=== PATIENT | female | born 1950 | race African-American/Black ===

== ENCOUNTER 2018-06-03 08:48 | Inpatient (IN) | payer MEDICARE, MEDICAID ==
[~2018-06-03] VITALS: Ht 160 cm; Wt 70.3 kg
[2018-06-03] MEDS ORDERED: MORPHINE SULFATE 4 MG/ML CPJ (NOT FOR IM USE) IV STA (09:18)
[2018-06-03 09:54] LABS: BASOPHILS % 0.7 % (0.0-2.0); EOSINOPHILS % 0.5 % (0.0-5.0); HEMATOCRIT. 34.7 % (36.0-48.0); HEMOGLOBIN. 10.7 g/dL (12.0-16.0); LYMPHOCYTES % 19.1 % (20.0-50.0); MEAN CORPUSCULAR VOLUME 84.2 fL (81.0-99.0); MEAN PLATELET VOLUME 7.8 fl (7.4-10.4); MONOCYTES % 6.2 % (2.0-8.0); NEUTROPHILS % 73.5 % (40.0-76.0); PLATELET 254 x1000/uL (130-400); RED BLOOD CELL COUNT 4.12 mill/uL (4.2-5.4); RED CELL DISTRIBUTION WIDTH 14.4 % (11.6-14.6)
[2018-06-03 09:55] LABS: CHLORIDE 103 mEq/L (98-107)
[2018-06-03 09:58] LABS: INR 1.1; PROTHROMBIN TIME 11.2 sec (9.1-11.1)
[2018-06-03] MEDS ORDERED: LIDOCAINE HCL 1% 20ML VIAL (Pyxis) INJ ONE (11:03)
[2018-06-03] MEDS ORDERED: SODIUM BICARBONATE 4% (2.4MEQ) 5ML VIAL IV ONE (11:03)
[2018-06-03] MEDS ORDERED: LORAZEPAM 2MG/ML CPJ IV ONE (12:15)
[2018-06-03 14:14] VITALS: BP 145/65
[2018-06-03 14:23] LABS: CLARITY URINE CLEAR (CLEAR); COLOR URINE YELLOW (YELLOW); KETONES URINE TRACE (NEGATIVE); LEUKOCYTE ESTERASE URINE TRACE (NEGATIVE); NITRITE URINE NEGATIVE (NEGATIVE); OCCULT BLOOD URINE NEGATIVE (NEGATIVE); PROTEIN URINE 1+ (NEGATIVE); UROBILINOGEN URINE 0.2 E.U./dL (0.2-1.0)
[2018-06-03] MEDS ORDERED: ACETAMINOPHEN 325MG TABLET PO PRN (15:00)
[2018-06-03] MEDS ORDERED: HYDROCODONE/APAP 7.5/325MG 1 TAB TABLET PO PRN (15:00)
[2018-06-03] MEDS ORDERED: DOCUSATE SODIUM 100MG CAPSULE PO PRN (15:00)
[2018-06-03] MEDS ORDERED: HYDROCODONE/ACETAMINOPHEN 5/325MG TABLET PO PRN (15:00)
[2018-06-03] MEDS ORDERED: AMLO5TAB4 MT (15:56)
[2018-06-03] MEDS ORDERED: GABA-529 MT (15:56)
[2018-06-03] MEDS ORDERED: LORA2TAB2 MT (15:56)
[2018-06-03] MEDS ORDERED: S350 MT (15:56)
[2018-06-03] MEDS ORDERED: FENT1PAT4 TP (15:56)
[2018-06-03] MEDS ORDERED: ZOLP10TA2 MT (15:56)
[2018-06-03] MEDS ORDERED: B50 INJ (15:56)
[2018-06-03] MEDS ORDERED: PANT40TA4 MT (15:56)
[2018-06-03] MEDS ORDERED: LIP40 MT (15:56)
[2018-06-03 16:00] VITALS: BP 145/65
[2018-06-03 20:00] VITALS: BP 157/70
[2018-06-03] MEDS: ATORVASTATIN CALCIUM 40MG TABLET PO SCH (21:49)
[2018-06-03] MEDS: CARISOPRODOL 350 MG TABLET PO SCH (21:49)
[2018-06-03] MEDS: ZOLPIDEM TARTRATE 5MG TABLET PO PRN (21:49)
[2018-06-04] VITALS: BP 158/82
[2018-06-04] MEDS ORDERED: DEXT 5%/0.9% NACL 1,000 ML IV SCH
[2018-06-04 04:00] VITALS: BP_SYST 157; BP_SYST 176; BP_DIAS 70; BP_DIAS 90
[2018-06-04] MEDS: CARISOPRODOL 350 MG TABLET PO SCH ×3 (05:17→21:58)
[2018-06-04] MEDS ORDERED: MORPHINE SULFATE 4 MG/ML CPJ (NOT FOR IM USE) IV PRN ×3 (06:00→08:30)
[2018-06-04] MEDS ORDERED: BUPIVACAINE HCL 0.5% (5MG/ML) 50ML ONE (06:53)
[2018-06-04] MEDS ORDERED: SKIN ADHESIVE 0.7 GM EA TOP ONE (06:54)
[2018-06-04] MEDS ORDERED: FENTANYL CITRATE/PF 50MCG/ML 2ML VIAL ONE (07:41)
[2018-06-04] MEDS ORDERED: MIDAZOLAM HCL 2 MG/2 ML VIAL ONE (07:41)
[2018-06-04] MEDS ORDERED: PROPOFOL 200MG/20ML VIAL IV ONE (07:41)
[2018-06-04] MEDS ORDERED: GLYCOPYRROLATE 0.2 MG/ML 2ML VIAL ONE ×2 (07:41→07:45)
[2018-06-04] MEDS ORDERED: METOCLOPRAMIDE HCL 10MG/2ML VIAL ONE (07:42)
[2018-06-04] MEDS ORDERED: SUCCINYLCHOLINE CHLORIDE 200MG/10ML IV ONE (07:42)
[2018-06-04] MEDS ORDERED: LIDOCAINE HCL/PF 1% 10 MG/ML 5ML VIAL ONE (07:42)
[2018-06-04] MEDS ORDERED: ONDANSETRON HCL 4MG/2ML INJ ONE (07:42)
[2018-06-04] MEDS ORDERED: ROCURONIUM BROMIDE 10MG/ML VIAL 5ML IV ONE (07:43)
[2018-06-04] MEDS ORDERED: NEOSTIGMINE METHYLSULFATE 1MG/ML 10 ML VIAL ONE (07:44)
[2018-06-04] MEDS ORDERED: HYDROCODONE/ACETAMINOPHEN 5/325MG TABLET PO PRN ×2 (07:45)
[2018-06-04] MEDS ORDERED: SODIUM CHLORIDE 0.9% 1,000 ML IV ONE (08:27)
[2018-06-04] MEDS ORDERED: ONDANSETRON HCL 4MG/2ML INJ IV PRN (08:30)
[2018-06-04] MEDS ORDERED: DIPHENHYDRAMINE 50MG/ML VIAL IV NR (08:30)
[2018-06-04] MEDS ORDERED: HYDROMORPHONE HCL/PF 2MG/ML CPJ IV PRN (08:30)
[2018-06-04] MEDS ORDERED: MEPERIDINE HCL/PF 25MG/ML CPJ IV PRN ×2 (08:30)
[2018-06-04] MEDS: PANTOPRAZOLE 40MG DR TABLET PO SCH (09:00)
[2018-06-04] MEDS: LORAZEPAM 0.5MG TABLET PO SCH ×2 (09:00→17:01)
[2018-06-04] MEDS ORDERED: AMLODIPINE 5MG TABLET PO SCH (09:00)
[2018-06-04] MEDS: DEXT 5%/0.45% NACL KCL 20MEQ/L 1,000 ML IV SCH (09:00)
[2018-06-04] MEDS ORDERED: HYDRALAZINE 20MG/ML VIAL IV ONE (11:45)
[2018-06-04 12:00] VITALS: BP 124/68
[2018-06-04] MEDS: MORPHINE SULFATE 4 MG/ML CPJ (NOT FOR IM USE) IV PRN ×2 (12:53→21:58)
[2018-06-04] MEDS ORDERED: HYDRALAZINE 10 MG in SODIUM CHLORIDE 0.9% 49.5 ML IV NR (13:00)
[2018-06-04 14:31] LABS: CHLORIDE 104 mEq/L (98-107)
[2018-06-04] MEDS: SODIUM CHLORIDE 0.9% INJ 3ML FLUSH IVF SCH ×2 (14:44→22:00)
[2018-06-04] MEDS ORDERED: CLONIDINE 0.1MG TABLET PO PRN (15:30)
[2018-06-04] MEDS: DIPHENHYDRAMINE 50MG/ML VIAL IM PRN (15:46)
[2018-06-04 16:00] VITALS: BP 156/74
[2018-06-04] MEDS: AMLODIPINE 5MG TABLET PO SCH (17:02)
[2018-06-04 20:00] VITALS: BP 123/60
[2018-06-04] MEDS: ATORVASTATIN CALCIUM 40MG TABLET PO SCH (21:58)
[2018-06-04] MEDS ORDERED: POTASSIUM CHLORIDE 20MEQ TABLET SR PO NR (22:30)
[2018-06-05] VITALS: BP 114/59
[2018-06-05] MEDS: ZOLPIDEM TARTRATE 5MG TABLET PO PRN (01:08)
[2018-06-05] MEDS: DEXT 5%/0.45% NACL KCL 20MEQ/L 1,000 ML IV SCH (01:08)
[2018-06-05 04:00] VITALS: BP 126/68
[2018-06-05] MEDS ORDERED: POTASSIUM CHLORIDE 20MEQ TABLET SR PO SCH (04:04)
[2018-06-05] MEDS: MORPHINE SULFATE 4 MG/ML CPJ (NOT FOR IM USE) IV PRN (05:17)
[2018-06-05] MEDS: CARISOPRODOL 350 MG TABLET PO SCH (06:21)
[2018-06-05] MEDS: SODIUM CHLORIDE 0.9% INJ 3ML FLUSH IVF SCH (06:21)
[2018-06-05 08:00] VITALS: BP 132/69
[2018-06-05 08:20] LABS: BASOPHILS % 0.8 % (0.0-2.0); EOSINOPHILS % 4.8 % (0.0-5.0); LYMPHOCYTES % 29.8 % (20.0-50.0); MEAN CORPUSCULAR HEMOGLOBIN 26.2 pg (28.0-32.0); MEAN CORPUSCULAR VOLUME 84.5 fL (81.0-99.0); MEAN PLATELET VOLUME 8.2 fl (7.4-10.4); MONOCYTES % 12.2 % (2.0-8.0); NEUTROPHILS % 52.4 % (40.0-76.0); PLATELET 187 x1000/uL (130-400); RED BLOOD CELL COUNT 3.43 mill/uL (4.2-5.4); RED CELL DISTRIBUTION WIDTH 14.1 % (11.6-14.6)
[2018-06-05 08:25] LABS: CHLORIDE 106 mEq/L (98-107)
[2018-06-05 08:35] LABS: LDL CHOLESTEROL 27 mg/dL (5-100)
[2018-06-05 08:42] LABS: HDL CHOLESTEROL 63 mg/dL (40-59)
[2018-06-05] MEDS: LORAZEPAM 0.5MG TABLET PO SCH (09:42)
[2018-06-05] MEDS: PANTOPRAZOLE 40MG DR TABLET PO SCH (09:42)
[2018-06-05] MEDS: AMLODIPINE 5MG TABLET PO SCH (09:43)
[2018-06-05] MEDS: DIPHENHYDRAMINE 50MG/ML VIAL IM PRN (09:53)
[2018-06-05 10:25] VITALS: BP 132/69
== END 2018-06-05 11:37 | disposition home or self-care (01) | DRG 857 ==
LOC: ER 08:48 → 6EST 10:27 → ENRESERV 13:33
PROVIDERS: ADMIT Family Medicine Adult Medicine; ATTEND Family Medicine Adult Medicine
PROC: 02HV33Z Insertion of Infusion Device into Superior Vena Cava, Percutaneous Approach (ICD-10-PCS; principal; 2018-06-03)
PROC: B518ZZA Fluoroscopy of Superior Vena Cava, Guidance (ICD-10-PCS; 2018-06-03)
PROC: B548ZZA Ultrasonography of Superior Vena Cava, Guidance (ICD-10-PCS; 2018-06-03)
PROC: 0JB80ZZ Excision of Abdomen Subcutaneous Tissue and Fascia, Open Approach (ICD-10-PCS; 2018-06-04)
DX: T81.49XA Infection following a procedure, other surgical site, initial encounter (principal); T81.31XA Disruption of external operation (surgical) wound, not elsewhere classified, initial encounter; J45.909 Unspecified asthma, uncomplicated; I10 Essential (primary) hypertension; M19.90 Unspecified osteoarthritis, unspecified site; M54.5 Low back pain; G89.29 Other chronic pain; E78.5 Hyperlipidemia, unspecified; G62.9 Polyneuropathy, unspecified; Z96.653 Presence of artificial knee joint, bilateral; Y83.8 Other surgical procedures as the cause of abnormal reaction of the patient, or of later complication, without mention of misadventure at the time of the procedure; Y92.89 Other specified places as the place of occurrence of the external cause; Z88.0 Allergy status to penicillin; Z88.6 Allergy status to analgesic agent; Z82.49 Family history of ischemic heart disease and other diseases of the circulatory system
CPT/HCPCS: 36415; 36569; 76937; 77001; 80048; 80061; 82962; 88304; 93005; 93306; 96374; 96375; 97161; 97165; 99285; C1725; J0330; J0360; J1200; J2060; J2175; J2250; J2270; J2405; J2704; J2710; J2765; J3010; J3490; J7040; J7042

== ENCOUNTER → 2018-07-20 | Outpatient (CLI) | payer MEDICARE, OTHER ==
[~2018-07-20] MED LIST: AMLO5TAB4 MT; B50 INJ; FENT1PAT4 TP; GABA-529 MT; IOHEXOL-300 50 ML BOTTLE IV ONE; LIP40 MT; LORA2TAB2 MT; PANT40TA4 MT; S350 MT; ZOLP10TA2 MT
== END | disposition home or self-care (01) ==
LOC: CT 09:35
PROVIDERS: ATTEND Surgery
DX: S31.109A Unspecified open wound of abdominal wall, unspecified quadrant without penetration into peritoneal cavity, initial encounter (principal); X58.XXXA Exposure to other specified factors, initial encounter; Y93.89 Activity, other specified; Y92.89 Other specified places as the place of occurrence of the external cause; Y99.9 Unspecified external cause status
CPT/HCPCS: 20501; 77012; Q9967; L8514

== ENCOUNTER 2018-08-17 16:14 | Inpatient (IN) | payer MEDICARE, OTHER ==
[~2018-08-17] VITALS: Ht 162.6 cm; Wt 72.6 kg
[~2018-08-17 16:14] MED LIST changes: -IOHEXOL-300 50 ML BOTTLE IV ONE
[2018-08-17] MEDS ORDERED: ONDANSETRON HCL 4MG/2ML INJ IV ONE (21:30)
[2018-08-17] MEDS ORDERED: MORPHINE SULFATE 4 MG/ML CPJ (NOT FOR IM USE) IV ONE (21:30)
[2018-08-17] MEDS ORDERED: SODIUM CHLORIDE 0.9% 1,000 ML IV ONE (21:30)
[2018-08-17 22:02] LABS: BASOPHILS % 0.7 % (0.0-2.0); EOSINOPHILS % 2.3 % (0.0-5.0); HEMATOCRIT. 34.1 % (36.0-48.0); HEMOGLOBIN. 10.6 g/dL (12.0-16.0); LYMPHOCYTES % 38.6 % (20.0-50.0); MEAN CORPUSCULAR HEMOGLOBIN 26.7 pg (28.0-32.0); MEAN CORPUSCULAR VOLUME 85.5 fL (81.0-99.0); MEAN PLATELET VOLUME 8.1 fl (7.4-10.4); MONOCYTES % 7.3 % (2.0-8.0); NEUTROPHILS % 51.1 % (40.0-76.0); PLATELET 247 x1000/uL (130-400); RED BLOOD CELL COUNT 3.99 mill/uL (4.2-5.4); RED CELL DISTRIBUTION WIDTH 14.2 % (11.6-14.6)
[2018-08-17 22:07] LABS: CHLORIDE 105 mEq/L (98-107)
[2018-08-17 22:12] LABS: INR 1.1; PARTIAL THROMBOPLASTIN TIME 33.4 sec (23.4-31.0); PROTHROMBIN TIME 11.1 sec (9.6-11.0)
[2018-08-17] MEDS ORDERED: MAGNESIUM CITRATE 300ML SOLUTION PO ONE (23:00)
[2018-08-17] MEDS ORDERED: KETOROLAC 15MG/ML VIAL IV ONE (23:00)
[2018-08-17] MEDS ORDERED: IPRATROPIUM/ALBUTEROL 0.5-3(2.5)MG/3ML NEB INH PRN (23:30)
[2018-08-17] MEDS ORDERED: HYDROCODONE/ACETAMINOPHEN 5/325MG TABLET PO PRN (23:30)
[2018-08-17] MEDS ORDERED: ACETAMINOPHEN 650MG SUPP PR PRN (23:30)
[2018-08-17] MEDS ORDERED: MAGNESIUM/ALUMINUM HYDROXIDE/SIMETHICONE 30ML UDC PO PRN (23:30)
[2018-08-17] MEDS ORDERED: GUAIFENESIN 200MG/10ML SUGAR FREE UDC PO PRN (23:30)
[2018-08-17] MEDS ORDERED: LORAZEPAM 0.5MG TABLET PO PRN (23:30)
[2018-08-17] MEDS ORDERED: CLONIDINE 0.1MG TABLET PO PRN (23:30)
[2018-08-17] MEDS ORDERED: DOCUSATE SODIUM 100MG CAPSULE PO PRN (23:30)
[2018-08-18] MEDS: AMLODIPINE 5MG TABLET PO SCH ×3 (00:36→20:59)
[2018-08-18] MEDS: ONDANSETRON HCL 4MG/2ML INJ IV PRN ×3 (02:44→14:42)
[2018-08-18] MEDS: MORPHINE SULFATE 4 MG/ML CPJ (NOT FOR IM USE) IV PRN ×4 (02:45→18:58)
[2018-08-18 03:15] VITALS: BP 170/117
[2018-08-18] MEDS ORDERED: BISACODYL 10MG SUPP PR SCH (07:15)
[2018-08-18 07:30] VITALS: BP 140/71
[2018-08-18 08:00] VITALS: BP 127/68
[2018-08-18] MEDS ORDERED: NA PHOS,M-B/NA PHOS,DI-BA ENEMA 118ML PR PRN (09:00)
[2018-08-18] MEDS: LACTULOSE 20G/30ML UDC PO SCH ×3 (09:20→21:00)
[2018-08-18 10:02] LABS: BASOPHILS % 0.8 % (0.0-2.0); EOSINOPHILS % 1.8 % (0.0-5.0); HEMOGLOBIN. 9.6 g/dL (12.0-16.0); LYMPHOCYTES % 27.6 % (20.0-50.0); MEAN CORPUSCULAR HEMOGLOBIN 26.9 pg (28.0-32.0); MEAN CORPUSCULAR VOLUME 83.9 fL (81.0-99.0); MEAN PLATELET VOLUME 7.6 fl (7.4-10.4); MONOCYTES % 13.4 % (2.0-8.0); NEUTROPHILS % 56.4 % (40.0-76.0); PLATELET 226 x1000/uL (130-400); RED BLOOD CELL COUNT 3.58 mill/uL (4.2-5.4); RED CELL DISTRIBUTION WIDTH 13.9 % (11.6-14.6)
[2018-08-18 10:07] LABS: CHLORIDE 105 mEq/L (98-107)
[2018-08-18 10:14] LABS: PHOSPHORUS 2.6 mg/dL (2.5-4.9)
[2018-08-18 10:15] LABS: LDL CHOLESTEROL 32 mg/dL (5-100)
[2018-08-18] MEDS ORDERED: POTASSIUM CHLORIDE 20MEQ TABLET SR PO SCH (10:15)
[2018-08-18 10:16] LABS: HDL CHOLESTEROL 89 mg/dL (40-59)
[2018-08-18 11:43] VITALS: BP 141/65
[2018-08-18] MEDS ORDERED: PNEUMOCOCCAL 23-VAL P-SAC VAC 0.5 ML IM ONE (12:00)
[2018-08-18] MEDS: METOCLOPRAMIDE HCL 10MG/2ML VIAL IV SCH ×2 (12:34→18:00)
[2018-08-18] MEDS: DIPHENHYDRAMINE 50MG/ML VIAL IV PRN ×2 (12:44→22:58)
[2018-08-18] MEDS ORDERED: CARISOPRODOL 350 MG TABLET PO PRN (13:00)
[2018-08-18] MEDS: GABAPENTIN 100MG CAPSULE PO SCH ×2 (15:09→21:00)
[2018-08-18 16:05] LABS: INR 1.1; PARTIAL THROMBOPLASTIN TIME 30.8 sec (23.4-31.0); PROTHROMBIN TIME 11.4 sec (9.6-11.0)
[2018-08-18 16:20] VITALS: BP 135/67
[2018-08-18 20:00] VITALS: BP 155/86
[2018-08-18] MEDS ORDERED: ATORVASTATIN CALCIUM 40MG TABLET PO SCH (21:00)
[2018-08-19] VITALS: BP 154/81
[2018-08-19] MEDS: METOCLOPRAMIDE HCL 10MG/2ML VIAL IV SCH ×3 (00:29→11:52)
[2018-08-19 04:00] VITALS: BP 140/71
[2018-08-19] MEDS: MORPHINE SULFATE 4 MG/ML CPJ (NOT FOR IM USE) IV PRN ×3 (04:43→14:51)
[2018-08-19] MEDS: LACTULOSE 20G/30ML UDC PO SCH ×2 (05:49→13:07)
[2018-08-19] MEDS: GABAPENTIN 100MG CAPSULE PO SCH ×2 (05:49→13:07)
[2018-08-19] MEDS ORDERED: PANTOPRAZOLE 40MG DR TABLET PO SCH (07:20)
[2018-08-19 07:47] LABS: BASOPHILS % 0.5 % (0.0-2.0); EOSINOPHILS % 3.6 % (0.0-5.0); HEMATOCRIT. 30.1 % (36.0-48.0); HEMOGLOBIN. 9.4 g/dL (12.0-16.0); LYMPHOCYTES % 34.2 % (20.0-50.0); MEAN CORPUSCULAR HEMOGLOBIN 26.7 pg (28.0-32.0); MEAN CORPUSCULAR VOLUME 85.3 fL (81.0-99.0); MEAN PLATELET VOLUME 8.5 fl (7.4-10.4); MONOCYTES % 11.2 % (2.0-8.0); NEUTROPHILS % 50.5 % (40.0-76.0); PLATELET 198 x1000/uL (130-400); RED BLOOD CELL COUNT 3.53 mill/uL (4.2-5.4); RED CELL DISTRIBUTION WIDTH 13.9 % (11.6-14.6)
[2018-08-19 07:58] LABS: CHLORIDE 104 mEq/L (98-107)
[2018-08-19 08:00] VITALS: BP 102/59
[2018-08-19] MEDS: AMLODIPINE 5MG TABLET PO SCH (08:41)
[2018-08-19] MEDS: ONDANSETRON HCL 4MG/2ML INJ IV PRN (09:24)
[2018-08-19 12:00] VITALS: BP 114/56
[2018-08-19] MEDS: DIPHENHYDRAMINE 50MG/ML VIAL IV PRN (13:07)
[2018-08-19 14:20] VITALS: BP 130/81
[2018-08-19 14:51] VITALS: BP 130/81
== END 2018-08-19 15:52 | disposition home or self-care (01) | DRG 392 ==
LOC: ER 16:30 → 6EST 23:19 → EDBEDREQ 23:20 → EDBEDREQSVC 23:20 → EDBEDREQTM 23:20 → ENRESERV 08-18 02:13
PROVIDERS: ADMIT Specialist; ATTEND Specialist
DX: K59.00 Constipation, unspecified (principal); R04.2 Hemoptysis; N93.9 Abnormal uterine and vaginal bleeding, unspecified; E78.5 Hyperlipidemia, unspecified; J45.909 Unspecified asthma, uncomplicated; K21.9 Gastro-esophageal reflux disease without esophagitis; F41.9 Anxiety disorder, unspecified; Z96.659 Presence of unspecified artificial knee joint; Z88.2 Allergy status to sulfonamides; Z88.9 Allergy status to unspecified drugs, medicaments and biological substances
CPT/HCPCS: 36415; 71045; 74018; 74176; 76856; 80048; 80061; 83735; 83880; 84100; 84443; 84484; 93005; 93970; 96374; 96375; 97162; 99285; C1893; J1200; J1885; J2270; J2405; J2765; J7030